=== PATIENT | male | born 1985 | race Caucasian/White ===

== ENCOUNTER 2025-01-29 08:52 | Emergency (ER) | payer OTHER, SELFPAY ==
[2025-01-29 08:55] VITALS: BP 159/100
--- NOTE | 2025-01-29 09:25 | ED.GENMED ---
History of Present Illness
General
Chief Complaint: Swelling
Time Seen by Provider: 01/29/25 09:13
History of Present Illness
History of Present Illness:
39-year-old male presents to the right-sided jaw pain and swelling he has a known broken tooth to the right lower molar, does not have medical dental follow-up. States that his dentist is in [place] and he has no insurance coverage locally no
fevers or chills, denies neck pain or dysphagia
Review of Systems
Review of Systems
Allergies reviewed?: Yes
All Other Systems: ROS reviewed and negative except as documented in HPI and ROS
Phy Exam
Physical Exam
Physical Exam:
GEN: Well appearing, NAD, WDWN
HEENT: Oral mucosa moist, no scleral icterus. Significant swelling of the right lower jaw with fluctuance to the right lower buccal mucosa, tooth fracture with exposed pulp to the right lower first molar, no cervical adenopathy
Cardiac: Regular rate
Lung: No respiratory distress, no tachypnea
MSK: No gross deformity or injuries
Skin: Good color, no pallor or jaundice, no rashes
Neuro: AO x3, moves all extremities freely
Psych: Calm, cooperative
Course
Vital Signs
Initial and Last Documented VS:
Initial Vital Signs
Temp Pulse Resp BP Pulse Ox
97.9 F 70 18 159/100 97
01/29/25 08:55 01/29/25 08:55 01/29/25 08:55 01/29/25 08:55 01/29/25 08:55
Last Documented Vital Signs
Temp Pulse Resp BP Pulse Ox
97.9 F 70 18 159/100 97
01/29/25 08:55 01/29/25 08:55 01/29/25 08:55 01/29/25 08:55 01/29/25 08:55
Procedures
Incision/Drainage/Joint Aspiration
R dental:
Anethesia: 1% Lidocaine (R infra-alveolar block)
Type of procedure: incise
Nature of site: abscess
Description of abscess: less than 3cm
Loculations broken up: Yes
How much fluid was obtained?: small amount
Fluid description: purulent and bloody
Treatment: left open for drainage
MDM/Problems Addressed
MDM/Problems Addressed:
Bedside I&D performed with good amount of purulent discharge instructed patient on Augmentin for 2 days dentist as an outpatient. No indication for CT imaging at this time
*Pulse Oximetry
Patient hypoxic: no
Comment: 97%
*Critical Care Note
Total Time (30-74mins, 75-104mins- exclusive of procedures): Not Applicable
ED Attending Note
-
Portions of this chart may have been created with voice recognition software.� Occasional wrong word or��sound alike� substitutions may have occurred due to the inherent limitations of voice recognition software.
Discharge Plan
Departure
Patient Disposition: Home (Routine Discharge)
Date of Disposition: 01/29/25
Time of Disposition: 10:17
Patient with high blood pressure during this ER visit?: No
Discharge Problem:
Dental abscess
Instructions: Dental abscess - ED discharge instructions
Prescriptions:
New
amoxicillin-pot clavulanate 875-125 mg tablet
1 tab PO BID Qty: 14 0RF
Referrals:
NONE,* [Family Provider, Internal Medicine]
Interventions
Interventions:
*Risk Screen - Suicide Last Done: 01/29/25 08:55
*General Assessment Last Done: 01/29/25 08:55
*Neglect/Abuse Screening Last Done: 01/29/25 08:55
*ED- Fall Risk Assessment Last Done: 01/29/25 10:21
*ED COVID-19 Vaccine History Last Done: 01/29/25 08:55
*Nursing Disposition Last Done: 01/29/25 10:21
ED- Cardiac Assessment Last Done: 01/29/25 10:00
ED- Pulmonary Assessment Last Done: 01/29/25 10:00
ED-Skin Assessment Last Done: 01/29/25 10:00
Discharge Date and Time
Discharge Date/Time: 01/29/25 10:29
Print Language: RWANDAN
== END 2025-01-29 10:29 | disposition home or self-care (01) ==
LOC: EMR 08:52
PROVIDERS: EMERGENCY PHYSICIAN Student in an Organized Health Care Education/Training Program
DX: K04.7 Periapical abscess without sinus (principal); Z59.71 Insufficient health insurance coverage
CPT/HCPCS: 99283; 41800